=== PATIENT | male | born 1985 ===

== ENCOUNTER 2018-02-11 06:57 | Emergency (ER) | payer MEDICAID ==
--- NOTE | 2018-02-11 07:37 | C.PDOC ---
History Of Present Illness 32 y/o male brought to ER by ambulance after he was found wandering in the street. Patient has a strange and bizarre behavior.Patient refused to give his real name after he was picked up by EMS but he has now revealed that his name is Jake Matamoros. He states that his mother in August 2017 and she uses [facility]arris to communicate with him. Patient denies having any specific physical complaints. Time Seen by Provider: 02/11/18 07:13 Chief Complaint (Nursing): Psychiatric Evaluation History Per: Patient History/Exam Limitations: no limitations Past Medical History Reviewed: Historical Data, Nursing Documentation, Vital Signs Vital Signs: Last Vital Signs Temp 97.6 F 02/11/18 16:58 Pulse 82 02/11/18 16:58 Resp 20 02/11/18 16:58 BP 130/95 H 02/11/18 16:58 Pulse Ox 98 02/11/18 18:08 - Medical History PMH: No Chronic Diseases Surgical History: No Surg Hx Family History: States: No Known Family Hx - Social History Hx Alcohol Use: No (DENIES) Hx Substance Use: No (DEMOIES) Review Of Systems Except As Marked, All Systems Reviewed And Found Negative. Constitutional: Negative for: Fever, Chills Psych: Positive for: Other (bizarre behavior) Physical Exam - Physical Exam Appears: Other (disheveled, bizarre affect) Skin: Normal Color, Warm Head: Atraumatic, Normacephalic Eye(s): bilateral: Normal Inspection Nose: Normal Oral Mucosa: Moist Neck: Supple Chest: Symmetrical Cardiovascular: Rhythm Regular Respiratory: Normal Breath Sounds, No Rales, No Rhonchi, No Wheezing Neurological/Psych: Oriented x3, Normal Speech ED Course And Treatment - Laboratory Results Result Diagrams: 02/11/18 08:08 02/11/18 08:08 O2 Sat by Pulse Oximetry: 98 (RA) Pulse Ox Interpretation: Normal Medical Decision Making Medical Decision Making: Assessment: Hallucinations/Delusions Plan: --Labs --UA Updates: Patient has been medically cleared. Patient needs to be screened by [facility] and due to inclement weather conditions, he will be transferred for screening secondary to snow. Disposition - Disposition Disposition: OTHER INSTITUTION Disposition Time: 17:00 Condition: STABLE Forms: [facility] (Ukrainian) - Clinical Impression Clinical Impression: Schizophrenia - Scribe Statement The provider has reviewed the documentation as recorded by the Scribe Eb Shook Provider Attestation All medical record entries made by the Scribe were at my direction and personally dictated by me. I have reviewed the chart and agree that the record accurately reflects my personal performance of the history, physical exam, medical decision making, and the department course for this patient. I have also personally directed, reviewed, and agree with the discharge instructions and disposition.
[2018-02-11 08:22] LABS: BASO # 0.1 K/uL (0.0-0.2); BASO % 1.2 % (0.0-2.0); EOS # 0.1 K/uL (0.0-0.7); EOS % 1.3 % (0.0-4.0); HEMOGLOBIN 12.3 g/dL (12.0-18.0); LYMPH # 1.8 K/uL (1.0-4.3); LYMPH % 29.9 % (20.0-40.0); MEAN CELL VOLUME 69.8 fL (80.0-94.0); MEAN CORPUSCULAR HEMOGLOBIN 22.2 pg (27.0-31.0); MEAN CORPUSCULAR HGB CONC 31.8 g/dL (33.0-37.0); MEAN PLATELET VOLUME 8.2 fL (7.2-11.7); MONO # 0.7 K/uL (0.0-0.8); MONO % 10.9 % (0.0-10.0); NEUT # 3.5 K/uL (1.8-7.0); NEUT % 56.7 % (50.0-75.0); RBC 5.54 Mil/uL (4.40-5.90); RED CELL DISTRIBUTION WIDTH 16.2 % (11.5-14.5); WHITE BLOOD COUNT 6.1 K/uL (4.8-10.8)
[2018-02-11 08:49] LABS: ALB/GLOB RATIO 1.2 (1.0-2.1); ALBUMIN 4.7 g/dL (3.5-5.0); ALT/SGPT 38 U/L (21-72); AST/SGOT 45 U/L (17-59); BLOOD UREA NITROGEN 10 mg/dL (9-20); CALCIUM 9.5 mg/dl (8.6-10.4); GFR AFRICAN-AMERICAN > 60; GFR NON-AFRICAN AMERICAN > 60
[2018-02-11 10:32] LABS: BARBITURATES, UR NEGATIVE (NEGATIVE); BENZODIAZEPINES, UR NEGATIVE (NEGATIVE); OPIATES, UR NEGATIVE (NEGATIVE); PHENCYCLIDINE, UR NEGATIVE (NEGATIVE)
[2018-02-11 10:38] LABS: PH,URINE 5.5 (5.0-8.0); URINE BILIRUBIN SMALL (NEGATIVE); URINE BLOOD NEGATIVE (NEGATIVE); URINE CLARITY Clear (Clear); URINE COLOR YELLOW (YELLOW); URINE GLUCOSE (UA) NEGATIVE (Normal); URINE LEUKOCYTE ESTERASE NEGATIVE Leu/uL (Negative); URINE PROTEIN TRACE mg/dL (NEGATIVE); URINE UROBILINOGEN 0.2 mg/dL (0.2-1.0)
--- NOTE | 2018-02-11 12:07 | PCM.PSYCH ---
Initial Psychiatric Evaluation - Initial Psychiatric Evaluation Type of Admission: Voluntary Legal Status: Capacity Chief Complaint (in patient's own words): I am willy.' History of Present Illness and Precipitating Events: Patient is 32 y/o HM, who was escorted to the hospital in a bizarre state. Pt remains disorganized, and internally preoccupied throughout the interview. He continues to talk to himself and continues to laugh inappropriately. He appears delusional and paranoid. When asked, where is he now? [place] replied, [place]. When asked, who is the president of [place]? He replied, [place]. He continues to have loose associations. His speech is circumstantial and tangential. His answers remain illogical. However he denies any SI/HI. Past Psychiatric History - Past Psychiatric History Previous Treatment History: None Pertinent Medical Hx (Current Medical&Sleep Prob, Allergies): Allergies Allergy/AdvReac Type Severity Reaction Status Date / Time No Known Allergies Allergy Verified 02/11/18 07:09 No Known Home Med 02/11/18 Review of Systems - Review of Systems All systems: reviewed and no additional remarkable complaints except - Psychiatric Psychiatric: Anxiety, Auditory Hallucinations, Irritability, Paranoia Mental Status Examination - Personal Presentation Personal Presentation: Looks stated age - Affect Affect: Broad - Motor Activity Motor Activity: Psychomotor Agitation - Reliability in Providing Information Reliability in Providing Information: Poor, due to alteration in thoughts, Poor , due to altered mood - Speech Speech: Disorganized - Mood Mood: Anxious - Formal Thought Process Formal Thought Process: Hallucinations, Delusions, Paranoia, Loosening of associations, Flight of ideas - Hallucinations/Delusions Delusions: Persecution - Obsessions/Compulsions Obsessions: No Compulsions: No - Cognitive Functions Orientation: Person Sensorium: Alert Abstract Thinking: [place] Estimate of Intelligence: Below average Judgement: Imparied, as evidence by: Poor judgement, Imparied, as evidence by: Lack of insight into illness - Risk Risk: Diminished functioning DSM 5 DX - DSM 5 DSM 5 Diagnosis: Brief Psychotic disorder - Recommended/Plan of Treatment Treatment Recommendations and Plan of Treatment: Brief Psychotic disorder r/o SCPT Haldol 5 mg PO BID Cogentin 1 mg PO BID Start Haldol 5mg, Ativan 1 mg and Benadryl 50 mg PO q6 HR PRN. Patient to be [place] [facility] - Smoking Cessation Smoking Cessation Initiated: No
[2018-02-11 16:59] VITALS: BP 130/95; PULSE 82; RESP 20; TEMP 97.6
[2018-02-11 17:51] VITALS: O2SAT 98
== END 2018-02-11 18:02 | disposition short-term general hospital (02) ==
LOC: C.ER 06:57
DX: F20.9 Schizophrenia, unspecified (principal)